=== PATIENT | male | born 1990 | race Caucasian/White ===

== ENCOUNTER 2024-09-18 13:30 | Emergency (ER) | payer BC, SELFPAY ==
--- NOTE | 2024-09-18 13:36 | EKG_ITS ---
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
[2024-09-18 13:39] VITALS: BP 118/74; PULSE 73; RESP 18; TEMP 36.7; O2SAT 96; BMI 31.4
--- NOTE | 2024-09-18 14:04 | PD.EDRME ---
Rapid Medical Screening Exam E Arrival date/time: 09/18/24 13:30 This is a 46-year-old male that comes to the emergency room with complaints of chest pain. Patient states the pain radiated down his left arm. Patient states that his symptoms worsened by deep breath but not all the time. I have greeted and performed a focused initial assessment of this patient. Initial appropriate labs ordered at this time. A comprehensive ED assessment and evaluation of the patient and analysis of all test and completion of medical decision making process will be conducted by additional ED provider. Chief Complaint: Chest Pain Time Seen by Provider: 09/18/24 13:34 Vital signs: Vital Signs Temperature 98.1 F 09/18/24 13:39 Pulse Rate 73 09/18/24 13:39 Respiratory Rate 18 09/18/24 13:39 Blood Pressure 118/74 09/18/24 13:39 Pulse Oximetry (%) 96 09/18/24 13:39 Oxygen Delivery Method Room Air 09/18/24 13:39
--- NOTE | 2024-09-18 14:05 | XR_ITS ---
Examination: PA lateral chest 2 views Technique: Upright PA lateral chest 2 views Date and time: September 18, 2024, 1414 hrs. Indications: Chest pain today. Findings: Normal heart size. Minimal opacity on the lateral view in the lingular segment obscuring detail left cardiac contour No pulmonary edema Intact osseous structures Impression: Suspicious for early pneumonia in the lingular segment left upper lobe, the appearance should be clinically correlated
[2024-09-18 14:27] LABS: Basophils # (Auto) 0.1 Thou/mm3 (0.0-0.2); Basophils % (Auto) 1 % (0-2.5); Eosinophils # (Auto) 0.3 Thou/mm3 (0.0-0.5); Eosinophils % (Auto) 4 % (0-10); Hematocrit 45.3 % (41.0-53.0); Hemoglobin 16.0 g/dL (13.5-16.0); Immature Granulocytes Auto 0.01 Thou/mm3 (0.00-0.00); Lymphocytes # (Auto) 2.7 Thou/mm3 (1.0-4.8); Lymphocytes % (Auto) 44 % (10-50); Mean Corpuscular HGB Conc 35.3 g/dl (31.0-37.0); Mean Corpuscular Hemoglobin 31.6 pg (25.0-35.0); Mean Corpuscular Volume 90 fL (80-100); Monocytes # (Auto) 0.5 Thou/mm3 (0.0-0.8); Monocytes % (Auto) 9 % (0-12); Neutrophils # (Auto) 2.6 Thou/mm3 (1.8-7.7); Neutrophils % (Auto) 42 % (37-80); Nucleated Red Blood Cell # 0.00 Thou/mm3 (0.00-0.00); Nucleated Red Blood Cell % 0 /100 WBC (0); Platelet Count 238 Thou/mm3 (140-440); RDW Standard Deviation 41.6 fL (35.1-43.9); Red Blood Count 5.06 Miln/mm3 (4.50-5.90); White Blood Count 6.1 Thou/mm3 (3.8-10.6)
[2024-09-18 14:33] LABS: Collection Type, Urine Voided
[2024-09-18 14:44] LABS: Bilirubin,Urine Negative (Negative); Blood,Urine Trace (Negative); Clarity,Urine Clear (Clear/Hazy); Color,Urine Yellow (Lt Yel-Yel); Culture Indicated,Urine Not Indicated; Glucose, Urine Negative (Negative); Hyaline Casts,Urine < 1 /hpf (0-1); Ketones,Urine Trace (Negative); Leukocyte Esterase,Urine Negative (Negative); Nitrite,Urine Negative (Negative); PH,Urine 7.0 (5.0-7.0); Protein,Urine Trace (Neg - Trace); RBC,Urine 12 /hpf (0-3); Specific Gravity,Urine 1.036 (1.001-1.035); Squamous Epithelial Cell,Urine < 1 /hpf (0-5); Urobilinogen,Urine 2.0 mg/dL (0.0-1.0); WBC,Urine 1 /hpf (0-5)
[2024-09-18 14:47] LABS: B-Type Natriuretic Peptide < 20 pg/mL (0-100)
[2024-09-18 14:49] LABS: Alanine Aminotransferase 22 U/L (10-49); Albumin, Serum 4.4 gm/dL (3.5-5.0); Albumin/Globulin Ratio 1.9 (1.2-2.2); Alkaline Phosphatase 58 U/L (46-116); Anion Gap 5 (7-16); Aspartate Amino Transferase 31 U/L (0-34); BUN/Creatinine Ratio 8 Ratio (12-20); Bilirubin,Total 0.5 mg/dL (0.3-1.2); Blood Urea Nitrogen 9 mg/dL (9-23); Calcium 9.2 mg/dL (8.3-10.6); Calcium (Corrected) 9.2 mg/dL (8.5-10.1); Carbon Dioxide 29.2 mMol/L (20.0-31.0); Chloride 106 mMol/L (98-107); Creatinine (Component) 1.2 mg/dL (0.6-1.3); Estimated Creatinine Clearance 103.5 mL/min (>60); Globulin 2.3 gm/dL (2.3-3.5); Glucose 103 mg/dL (74-106); Osmolality,Calculated 278 (275-295); Potassium 4.6 mMol/L (3.4-5.1); Sodium 140 mMol/L (136-145); Total Protein 6.7 gm/dL (5.7-8.2); Troponin I < 0.002 ng/mL (0.0-0.045); eGFR > 60 See Note
[2024-09-18 14:56] LABS: Amphetamine/Methamp Scrn,U Negative (Negative); Barbiturate Screen,Urine Negative (Negative); Benzodiazepines Screen,Urine Negative (Negative); Benzoylecgonine Screen, Ur Negative (Negative); Fentanyl Screen,Urine Negative (Negative); Opiate Screen,Urine Negative (Negative); THC Screen,Urine Negative (Negative)
[2024-09-18 16:02] VITALS: BP 111/68; PULSE 59; RESP 16; TEMP 36.8; O2SAT 99
[2024-09-18] MEDS: IBUPROFEN TAB 600 MG TABLET PO (16:29)
[2024-09-18 17:06] LABS: Troponin I < 0.002 ng/mL (0.0-0.045)
[2024-09-18 17:57] VITALS: BP 120/75; PULSE 68; RESP 18; TEMP 36.7; O2SAT 100
--- NOTE | 2024-09-18 18:07 | EDNOTE_ITS ---
ED Chest Pain RME/HPI General Chief Complaint: Chest Pain Stated Complaint: Chest pain, SOB Time Seen by Provider: 09/18/24 13:34 Arrival date/time: 09/18/24 13:30 Limitations: no limitations RME / HPI RME / HPI narrative: 34-year-old male with a history anxiety is here today with unprovoked chest pain for the past day. He states this is worse with deep breaths. He denies any lower leg edema. Has had no recent traveling or surgery. No fevers or chills. No shortness of breath or cough. He states he does not feel anxious. She has had panic attacks in the past but this feels different. He denies any abdominal pain, nausea, vomiting. No near syncopal episodes. He has no other acute complaints. Related Data Allergies Allergy/AdvReac Type Severity Reaction Status Date / Time oxycodone (From OxyContin) Allergy Severe Hypotension Verified 09/18/24 13:35 sumatriptan (From Imitrex) Allergy Verified 09/18/24 13:35 shell fish Allergy Uncoded 09/18/24 13:35 Review of Systems Review of Systems Systems Reviewed: All systems reviewed, normal except as documented ED Exam General Limitations: Present no limitations General appearance: Present alert and in no apparent distress Head Head exam: Present atraumatic Eye Eye exam: Present normal appearance, PERRL and EOMI ENT ENT exam: Present normal exam, normal oropharynx and mucous membranes moist Neck Neck exam: Present normal inspection, full ROM and trachea midline Chest Chest inspection: Present normal inspection and symmetric chest wall rise Respiratory Respiratory exam: Present normal lung sounds bilaterally Cardiovascular Cardiovascular exam: Present regular rate, normal rhythm and normal heart sounds Abdominal Exam Abdominal exam: Present soft and normal bowel sounds Extremities Exam Extremities exam: Present normal inspection and full ROM Back Exam Back exam: Present normal inspection and full ROM Neurological Exam Neurological exam: Present alert, oriented X3 and CN II-XII intact Psychiatric Psychiatric exam: Present normal affect and normal mood Skin Skin exam: Present warm, dry, intact and normal color Course Quality Measures none Orders Category Date Time Status EKG (ED ONLY) *Do not use* NOW Care 09/18/24 13:36 Completed EKG (ED Only) Stat Exams 09/18/24 13:36 Draft XR chest 2V Stat Exams 09/18/24 14:05 Completed BNP [B-Type Natriuretic Peptide] Stat Lab 09/18/24 14:09 Completed CBC Stat Lab 09/18/24 14:09 Completed Comprehensive Metabolic Panel Stat Lab 09/18/24 14:09 Completed Drug Screen,Urine Stat Lab 09/18/24 14:25 Completed Troponin I Stat Lab 09/18/24 14:09 Completed Troponin I Stat Lab 09/18/24 16:33 Completed Urinalysis, C/S if Indicated Stat Lab 09/18/24 14:25 Completed Ibuprofen Tab [Motrin Tab] Med 09/18/24 16:25 Discontinued 600 mg PO X1 ONE Vital Signs Vital signs: Vital Signs Temperature 98.1 F 09/18/24 13:39 Pulse Rate 73 09/18/24 13:39 Respiratory Rate 18 09/18/24 13:39 Blood Pressure 118/74 09/18/24 13:39 Pulse Oximetry (%) 96 09/18/24 13:39 Oxygen Delivery Method Room Air 09/18/24 13:39 Chest Pain MDM Narrative MDM Narrative:: 34-year-old male with a history anxiety is here today with unprovoked chest pain for the past day. He states this is worse with deep breaths. He denies any lower leg edema. Has had no recent traveling or surgery. No fevers or chills. No shortness of breath or cough. He states he does not feel anxious. She has had panic attacks in the past but this feels different. He denies any abdominal pain, nausea, vomiting. No near syncopal episodes. He has no other acute complaints. On exam, patient is nontoxic-appearing and in no visible signs distress. His vital signs are stable. Lung tones are clear bilaterally. We discussed his test results. His CBC, CMP, serial troponin, and EKG are unremarkable. I do not appreciate any patchy infiltrates on his chest x-ray. However our radiologist reports possible early developing pneumonia. Patient has no cough or shortness of breath. He has no fevers or chills. He is asked to follow-up with his primary clinic next week. Return as needed for worsening or emergent changes. Patient data External records reviewed:: None Clinical information provided by:: patient Social determinants that could affect healthcare access:: none Patient has the following chronic illnesses:: n/a How is presenting disease/condition affected by chronic disease/condition?: no chronic disease Evaluation data The following diagnostics were reviewed and interpreted by me:: lab results (CBC, CMP, serial troponin are negative), radiology exam(s) (Clear expanding lung slightly masslike infiltrate) and EKG tracing(s) (Normal sinus rhythm at [address] changes or dynamic T waves.) Lab and/or radiology exams considered but not ordered:: n/a Interpretation Summary: Negative workup Medications / Prescriptions Medications or Prescriptions considered but not ordered:: n/a Medication administrations:: Medication Administration History Discontinued Medications Ibuprofen (Ibuprofen Tab 600 Mg Tablet) 600 mg PO X1 ONE Stop: 09/18/24 16:26 Last Admin: 09/18/24 16:29 Dose: 600 mg Documented By: SAL See above Consultations Consultation(s) initiated? (list below): No Diagnosis Chest Pain Differential Diagnosis: pneumothorax, atypical chest pain, costochondritis and chest pain Most likely diagnosis given after review of the tests above:: See above Admission Indicated Admission indicated?: not indicated Admission Request Was there a request for admission?: No Disposition Plan Disposition Plan: Discharge Discharge Attestation Discharge Attestation: The patient and all family members were given an opportunity to ask questions and understood the discharge instructions. Discharge instructions specifically effects, indications for sooner follow up or return to the emergency department, and the expected course of current diagnosis. Patient condition: Stable Discharge Plan Plan Patient Disposition: HOME (Self Care) Patient condition on transfer: Stable Prescriptions/Referrals Referrals: No Primary/Family,Physician [Primary Care Provider] - In 1 week Problem List Clinical Impression: Chest pain Patient/Caregiver Discharge Instructions Education Materials: ED Chest Pain, Noncardiac Additional Instructions: - Use Tylenol and ibuprofen for comfort. - Follow-up with your primary doctor soon as possible. - Return to the ER anytime for any worsening or emergent changes. Print Language: Occitan Stand Alone Forms: [employer] Award Info., Patient Portal Info Letter
== END 2024-09-18 18:20 | disposition home or self-care (01) ==
PROVIDERS: Nurse Practitioner Family; Physician Assistant Medical; Emergency Provider Family Medicine
DX: R07.9 Chest pain, unspecified (principal); R06.02 Shortness of breath
CPT/HCPCS: 36415; 71046; 80053; 80307; 81001; 83880; 84484; 85025; 93005; 99283; A9270